=== PATIENT | female | born 2005 | race Caucasian/White ===

== ENCOUNTER 2024-07-27 08:28 | Outpatient (RCR) | payer MEDICAID, SELFPAY ==
--- NOTE | 2024-07-27 12:34 | CTCCONSULT_ITS ---
Patient: MEGHAN AL I. : 2005 MR#: [id number] Page 2 of 2 CONSULTATION NOTE DATE OF CONSULTATION: 07/27/2024 NAME: MEGHAN AL I. ACCOUNT: [id number] : 2005 AGE: 19 REFERRING PHYSICIAN: Silvana Ingram MD ([place]) PRIMARY PHYSICIAN: REASON FOR VISIT: Concern for leukemia HISTORY OF PRESENT ILLNESS: 19-year-old female who is companied by her mother. Patient has been losing weight and have lost 15 pounds in last 3 months unintentionally. Patient also have night sweats and have lost appetite. Patient was diagnosed with Raynaud's syndrome and connective tissue disease and follows with rheumatology. Patient is on Plaquenil(hydroxychloroquine). Patient have a cousin who of leukemia at age of 8 months. Patient is very worried for leukemia and want to be ruled out. 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 albuterol-budesonide - 90-80 mcg/actuation As directed 2. atenolol - 25 mg 1 tab Daily 3. ferrous sulfate - 325 mg (65 mg iron) 1 tab Daily 4. hydrOXYzine HCL - 100 mg 1 tab Daily 5. ibuprofen - 200 mg 2 tab As directed 6. magnesium oxide - 400 mg magnesium 1 Capsule Daily 7. prednisone - 20 mg 1 tab As directed Medications Last Reconciled by Isi Franks RN on 07/27/2024 ALLERGIES: No Known Drug Allergies REVIEW OF SYSTEMS: A complete 14-point review of systems was performed and is negative except as noted in interval history. PHYSICAL EXAMINATION: VITAL SIGNS: Temperature?98.1, B/P?114/77, Height?60?inches, Oxygen?Saturation?100% Weight?136?lbs PAIN: 0 - No pain ECOG Performance Status: 1 - Symptomatic; ambulatory; restricted in strenuous activity GENERAL APPEARANCE: Appears well, in no apparent distress, appropriately interactive. HEENT: Normocephalic, no temporal wasting, normal conjunctiva, no scleral icterus, normal hearing, lips without lesions, neck normal range of motion. CARDIOVASCULAR: Not assessed. PULMONARY: Normal respiratory effort, no respiratory distress or use of accessory muscles, speaking in full sentences, no tachypnea. EXTREMITIES: No pedal edema or cyanosis. SKIN: Normal skin appearance. NEUROLOGIC: Alert and oriented x4. PSHYCHIATRIC: Appropriate affect, mood normal, behavior normal, intact thought and speech. LABORATORY DATA: I have personally reviewed and interpreted each of Ms. Al?s relevant lab tests, abnormal findings are below: Date ASSESSMENT/PLAN: Concern for leukemia Patient gives a history of weight loss night sweats and appetite loss Patient have mildly low MCH and high RDW most likely from iron deficiency Patient's WBC count is on the lower side of 3 Platelets are normal differential is normal Extensively counseled patient that her symptoms may be indicative of lymphoma but very unlikely to have leukemia Patient's hepatitis panel has been negative/HIV negative Will order bone marrow biopsy and PET CT scan to evaluate for lymphoma Will see Ms. Al in 4 weeks Patient and patient's mother give a history of cancer in multiple members of the family including leukemia and her younger cousin first-degree Will order hereditary cancer test If all above workup is negative patient can be discharged back to follow-up with the primary care and rheumatology ORDERS: Order # Description [id number] Comprehensive Metabolic Panel - 12 + CBC with Auto Diff [id number] [facility] Hereditary Cancer Test + CT Guided Bone Marrow Biopsy and Aspiration [id number] Initial PET/CT of Skull to Mid-Thigh [id number] Follow Up 4 Week RETURN TO CLINIC: 4 to 6 weeks after all the above is complete BILLING AND COMPLIANCE: I reviewed external records from providers outside my specialty as summarized above. I spent a total of 50 minutes on this patient?s care on the day of their visit excluding time spent related to any billed procedures. This time includes time spent with the patient as well as time spent documenting in the medical record, reviewing patients records and tests, obtaining history, placing orders, communicating with other healthcare professionals, counseling the patient, family or caregiver, and/or care coordination for the diagnoses above. Electronically Signed by: Paulo Zeng MD T: 12:32 PM CC: Silvana?Juan Jose?(delmis),? PCP: Referring: Silvana Ingram ([place]) This document was completed utilizing speech recognition software. Grammatical errors, random word insertions, pronoun errors, and incomplete sentences are an occasional consequence of this system due to software limitations, ambient noise, and hardware issues. Any formal questions or concerns about the content, text or information contained within the body of this dictation should be directly addressed to the provider for clarification.
== END 2024-08-15 23:59 | disposition home or self-care (01) ==
LOC: SCTC 08:28
PROVIDERS: PCP Physician Assistant; Referring Provider Physician Assistant; Visit Provider Internal Medicine Hematology & Oncology
DX: Z76.89 Persons encountering health services in other specified circumstances (principal); D72.819 Decreased white blood cell count, unspecified; R63.4 Abnormal weight loss; R61 Generalized hyperhidrosis; R63.0 Anorexia; Z68.26 Body mass index [BMI] 26.0-26.9, adult; Z80.6 Family history of leukemia
CPT/HCPCS: 99213; G0463

== ENCOUNTER 2024-08-29 07:19 | Outpatient (CLI) | payer BC, SELFPAY ==
[2024-08-25 17:59] VITALS: BMI 27.1
--- NOTE | 2024-08-25 18:19 | PC.NURSE ---
juancarlos unable to have labs done tomorrow 08/26/24, patient will come in 0700 day of procedure for registration and labs
[2024-08-29] VITALS (13 sets, daily range): BP systolic 101–136; BP diastolic 62–92; PULSE 62–111; RESP 16–25; TEMP 36.4–36.9; O2SAT 96–100
[2024-08-29 08:04] LABS: Basophils % (Auto) 1 % (0-2.5); Eosinophils # (Auto) 0.2 Thou/mm3 (0.0-0.5); Eosinophils % (Auto) 6 % (0-10); Hematocrit 36.2 % (36.0-46.0); Hemoglobin 11.6 g/dL (12.0-16.0); Immature Granulocytes % (Auto) 0 % (0-0); Lymphocytes # (Auto) 1.1 Thou/mm3 (1.0-4.8); Lymphocytes % (Auto) 32 % (10-50); Mean Corpuscular Hemoglobin 27.6 pg (25.0-35.0); Mean Corpuscular Volume 86 fL (80-100); Monocytes # (Auto) 0.3 Thou/mm3 (0.0-0.8); Monocytes % (Auto) 10 % (0-12); Neutrophils # (Auto) 1.7 Thou/mm3 (1.8-7.7); Neutrophils % (Auto) 51 % (37-80); Nucleated Red Blood Cell % 0 /100 WBC (0); Platelet Count 246 Thou/mm3 (140-440); RDW Standard Deviation 44.9 fL (36.4-46.3); White Blood Count 3.3 Thou/mm3 (3.6-11.0)
[2024-08-29 08:21] LABS: HCG,Qualitative Serum Negative
[2024-08-29 08:25] LABS: Partial Thromboplastin Time 27.1 Seconds (22.0-36.0); Prothrombin Time 10.6 Seconds (9.0-12.2)
--- NOTE | 2024-08-29 08:30 | XR_ITS ---
Examination: CT-guided percutaneous bone marrow aspiration right posterior superior iliac crest CT-guided percutaneous bone biopsy deep right posterior superior iliac crest CT pelvis without intravenous contrast Date and time of procedure: August 29, 2024 0906 hours INDICATIONS: Leukopenia on examination this month Informed consent provided. A timeout was completed verifying correct patient, procedure, site and positioning. . Technique: Axial 3 mm sections were obtained for localization of the right posterior superior iliac crest Appropriate area is marked. The patient's site was prepped and draped in sterile fashion Maximal sterile barrier technique utilized, including hand hygiene Local anesthesia was obtained with 1% lidocaine. Low dose protocols were performed. One or more of the following dose reduction techniques were used; automated exposure control, adjustment of the mA and/or KV according to patient size, use of iterative reconstruction technique. Utilizing CT fluoroscopic guidance 14-gauge bone biopsy needle placed in the right posterior superior iliac crest 5 cc marrow aspirate obtained 5 cm bone core obtained Patient appears in stable condition during this procedure. At completion of the procedure, the patient is in satisfactory condition. Estimated blood loss 2 cc Complete pathology report to follow. Impression: Successful CT-guided percutaneous bone marrow aspiration right posterior superior iliac crest Successful CT-guided percutaneous bone biopsy deep right posterior superior iliac crest
[2024-08-29 08:52] LABS: Flow Cytometry* See Sep Rpt
[2024-08-29] MEDS: SODIUM CHLORIDE 0.9% 500 ML 500 ML 250 ML IV (09:00)
[2024-08-29] MEDS: fentaNYL CIT INJ 50 mCg/ML AMP 2ML 100 MCG IVP (09:34)
== END 2024-08-29 11:00 | disposition home or self-care (01) ==
PROVIDERS: Radiology Diagnostic Radiology; PCP Physician Assistant Medical; Referring Provider Internal Medicine Hematology & Oncology; Visit Provider Internal Medicine Hematology & Oncology
DX: D64.89 Other specified anemias (principal); D75.89 Other specified diseases of blood and blood-forming organs; Z01.812 Encounter for preprocedural laboratory examination
CPT/HCPCS: 38221; 36415; 77012; 84703; 85025; 85610; 85730; J3010; J7040

== ENCOUNTER → 2024-10-20 | Outpatient (CLI) | payer BC, SELFPAY ==
[2024-10-20 10:12] LABS: HCG Qualitative,Urine Negative
--- NOTE | 2024-10-20 10:15 | XR_ITS ---
EXAMINATION: PET/CT FUSION SKULL TO THIGH EXAM DATE AND TIME: October 20, 2024 at 11:25 AM Comparison none available INDICATIONS: Diagnosis: Evaluate for malignancy, history leukopenia, history autoimmune disease CTDI:vol (mGy) 3.72 DLP: (mGycm) 339.75 PROCEDURE: 16.1 mCi FDG was administered intravenously To allow for distribution and uptake of radiotracer, the patient was allowed to rest quietly in a shielded room. Imaging was performed on an integrated 16-slice PET/CT scanner, with scanning from the skull base to the mid thigh. Serum blood glucose at the time of the injection was measured 92 mg/dL. CT scanning was performed without oral or intravenous contrast material. FINDINGS: Head and Neck: There is no johanna hypermetabolism in the neck. The visualized portions of the brain are normal in appearance on CT. Chest: 4 mm non hypermetabolic pulmonary nodule right upper lobe image 75 7 mm non hypermetabolic pulmonary nodule pleural-based right upper lobe image 83 Abdomen and Pelvis: There is no johanna hypermetabolism in retroperitoneal or pelvic chains. The spleen is normal in size and FDG avidity. Musculoskeletal: Marrow uptake is within normal range. IMPRESSION: 4 mm, 7 mm non hypermetabolic pulmonary nodules right upper lobe, recommend follow-up chest imaging
== END | disposition home or self-care (01) ==
PROVIDERS: Referring Provider Internal Medicine Hematology & Oncology; Visit Provider Internal Medicine Hematology & Oncology
DX: R91.8 Other nonspecific abnormal finding of lung field (principal); D72.819 Decreased white blood cell count, unspecified
CPT/HCPCS: 78815; 81025; A9552